=== PATIENT | female | born 1990 | race Caucasian/White ===

== ENCOUNTER 2017-08-29 00:15 | Emergency (ER) | payer MEDICAID ==
[~2017-08-29] VITALS: Ht 175.3 cm; Wt 63.5 kg
[2017-08-29 00:40] VITALS: BP 110/74
[2017-08-29] MEDS ORDERED: NORCO 5-325 TA1 EACH ORAL (01:50)
[2017-08-29] MEDS ORDERED: IBUPROFEN600 MG ORAL (01:50)
[2017-08-29 01:59] VITALS: BP 1/1
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
--- NOTE | 2017-08-29 21:47 | Diagnostic Imaging Report ---
Indication: Trauma Findings: Bilateral views of the nasal bone and a Boss' view were obtained. Acute fracture of the nasal bone demonstrated. Fracture is comminuted but nondisplaced. Soft tissue swelling noted. IMPRESSION: Acute nasal bone fracture
== END 2017-08-29 02:00 | disposition home or self-care (01) ==
LOC: EMR 01:23
DX: S02.2XXA Fracture of nasal bones, initial encounter for closed fracture (principal); Y04.2XXA Assault by strike against or bumped into by another person, initial encounter; Y92.9 Unspecified place or not applicable
CPT/HCPCS: 70160; 99283